=== PATIENT | female | born 1955 | race Caucasian/White ===

== ENCOUNTER → 2016-08-03 | Outpatient (CLI) | payer OTHER ==
--- NOTE | 2016-08-03 15:15 | DX ---
DEXA Bone Mineral Densitometry Clinical Indications: Screening for osteoporosis, postmenopausal, HRT x2 years Comparison: September 10, 2014 Technique: Bone Mineral Densitometry (BMD) by Dual Energy X-Ray Absorptiometry (DEXA) was performed utilizing the [employer] scanner. The lumbar spine was evaluated in the AP projection. The bilat eral hips and forearm were evaluated in the AP projection. Vertebral fracture assessment was also pe rformed. AP Lumbar Spine: The L1, L2, L3 and L4 vertebral bodies were evaluated. BMD: 1.318 gm/cm2 T-score: 1.0 SD Z-score: 2.7 SD Significantly increased by 4.7%. AP Left Hip: Neck BMD: 0.923 gm/cm2 T-score: -0.8 SD Z-score: 0.7 SD No significant change in total BMD AP Right Hip: Neck BMD: 0.956 gm/cm2 T-score: -0.6 SD Z-score: 1.0 SD No significant change in total BMD AP Left Forearm, 07/21: BMD: 0.676 gm/cm2 T-score: -2.3 SD Z-score: -1.2 SD No significant change. Vertebral Fracture Assessment: No significant fracture deformity. No prevertebral aortic calcificati on, significant marginal bone spurring, facet arthrosis, or intrinsic vertebral body sclerosis that would effect the accuracy of the lumbar spine BMD measurement. Conclusion: Considering the lowest measured site, the patient has low bone density. Since the forear m is the lowest measured site, it would be worthwhile to exclude hyperparathyroidism. The ten year FRAX risk for any major osteoporotic fracture , which excludes the risk for a wrist frac ture, is 6.4% and for a hip fracture is 0.4%. To prevent osteoporosis and to promote the patient's bone density, the following recommendations shou ld be considered: 1. Pursue a regular regimen of weightbearing and muscle strengthening exercises in order to reduce t he risk of falls and fractures (as tolerated by the patient's general medical condition). 2. Ensure that daily dietary calcium uptake is maximized. 3. Consider checking the serum vitamin D level. Ensure that intake of vitamin D is 600 IU per day (fo r all ages through 70) 4. Consider follow-up DEXA scan in two years to assess the rate of bone loss in this patient.
== END ==
LOC: BRMIMAGING 13:54
PROVIDERS: ATTEND Internal Medicine
DX: Z13.820 Encounter for screening for osteoporosis (principal); M85.80 Other specified disorders of bone density and structure, unspecified site

== ENCOUNTER 2016-12-06 09:58 | Emergency (ER) | payer OTHER ==
[2016-12-06 10:07] VITALS: RESP 16
--- NOTE | 2016-12-06 10:16 | CPEKG ---
Heart Rate: 72 RR Interval: 833 P-R Interval: 156 QRSD Interval: 92 QT Interval: 420 QTC Interval: 460 P Neffs: 82 QRS Neffs: 84 T Wave Neffs: 67 EKG Severity - BORDERLINE ECG - EKG Impression: SINUS RHYTHM EKG Impression: PROBABLE LEFT ATRIAL ABNORMALITY EKG Impression: SMALL INFERIOR Q EKG Impression: BORDERLINE RIGHT AXIS DEVIATION EKG Impression: BORDERLINE T ABNORMALITIES, ANT-LAT LEADS EKG Impression: COMPARED WITH 16 JUN 2015, T ABNL NOW SEEN Electronically Signed By: Jade Caldwell 11-Dec-2016 13:59:47
--- NOTE | 2016-12-06 10:27 | EDPHY ---
HPI/HX/ROS/PE/MDM Narrative: CHIEF COMPLAINT: Palpitations, elevated heart rate HPI: The patient is a 61 y/o female arriving with her complaining of recurrent episodes of rapid heart rate and palpitations for the last several weeks and worsening yesterday during a biathlon. She has noticed palpitations and sensation of heart racing without pain at rest, during exercise, and symptoms have even woke her from sleep. When present, she describes symptoms as "strong enough that I'm aware of my heart." Yesterday during a biathlon her heart rate monitor showed her heart rate at 242 and reports it was sustained for 7 minutes. She was able to keep running during this time and denies any pain , though she felt like she was breathing heavier. She says her heart rate then dropped to 160 for the remainder rest of event, which is normal for her during intense exercise. She has a history of bradycardia, but otherwise denies significant medical history. REVIEW OF SYSTEMS: Aside from elements discussed in the HPI, a comprehensive 10-point review of systems was reviewed and is negative. PMH: Bradycardia, Postmenopausal - on hormone-replacement therapy SOCIAL HISTORY: at bedside. Competes in triathlons. Lives in [place] PCP: Dr. Ch PHYSICAL EXAM: General:Patient is alert, in no acute distress. ENT:Eyes are normal to inspection. ENT inspection normal. Neck: Normal inspection. Full range of motion. Respiratory:No respiratory distress. Breath sounds normal bilaterally. Cardiovascular: Regular rate and rhythm. Strong peripheral pulses. Normal cap refill. Abdomen:The abdomen is nontender to palpation. There are no peritoneal signs. Back: Normal to inspection. No tenderness to palpation. Skin: Normal color. No rash. Warm and dry. Extremities: Normal appearance. Full range of motion. Neuro: Oriented x3. Normal motor function. Normal sensory function. ED Course: IV established. Labs drawn including CBC, CHEM. Patient placed on band lining bander. The 12 lead EKG was interpreted by myself. See hard copy and/or "tracemaster" electronic copy for interpretation. MDM: This patient presents with concern for rapid heart rate yesterday. Given that her reported heart rate was 240bpm but she was able to continue her triathalon, I somewhat doubt that this was an accurate reading. The patient is currently asymptomatic and has a normal heart rate and normal ECG. We performed basic screening labs and I see no indication of anemia or serious electrolyte abnormality. There is no chest pain to suggest ACS. I have referred patient to electrophysiology. She is comfortable with this plan. We discussed strict return precautions. - Data Points Laboratory Results: Laboratory Results 12/06/16 10:17 12/06/16 12/06/16 10:17 10:17 WBC 5.90 10^3/uL 10^3/uL (3.80-9.50) RBC 4.98 10^6/uL 10^6/uL (4.18-5.33) Hgb 15.1 g/dL g/dL (12.6-16.3) Hct 46.0 % % (38.0-47.0) MCV 92.4 fL fL (81.5-99.8) MCH 30.3 pg pg (27.9-34.1) MCHC 32.8 g/dL g/dL (32.4-36.7) RDW 13.9 % % (11.5-15.2) Plt Count 272 10^3/uL 10^3/uL (150-400) MPV 9.2 fL fL (8.7-11.7) Neut % (Auto) 50.1 % % (39.3-74.2) Lymph % (Auto) 35.3 % % (15.0-45.0) [place] % (Auto) 11.2 % % (4.5-13.0) Eos % (Auto) 2.5 % % (0.6-7.6) Baso % (Auto) 0.7 % % (0.3-1.7) Nucleat RBC Rel Count 0.0 % % (0.0-0.2) Absolute Neuts (auto) 2.96 10^3/uL 10^3/uL (1.70-6.50) Absolute Lymphs (auto) 2.08 10^3/uL 10^3/uL (1.00-3.00) Absolute Monos (auto) 0.66 10^3/uL 10^3/uL (0.30-0.80) Absolute Eos (auto) 0.15 10^3/uL 10^3/uL (0.03-0.40) Absolute Basos (auto) 0.04 10^3/uL 10^3/uL (0.02-0.10) Absolute Nucleated RBC 0.00 10^3/uL 10^3/uL (0-0.01) Immature Gran % 0.2 % % (0.0-1.1) Immature Gran # 0.01 10^3/uL 10^3/uL (0.00-0.10) Sodium Pending Potassium Pending Chloride Pending Carbon Dioxide Pending Anion Gap Pending BUN Pending Creatinine Pending Estimated GFR Pending Glucose Pending Calcium Pending TSH Pending General Time Seen by Provider: 12/06/16 10:08 Initial Vital Signs: Initial Vital Signs Temperature (C) 36.5 C 12/06/16 10:03 Heart Rate 82 12/06/16 10:03 Respiratory Rate 16 12/06/16 10:03 Blood Pressure 119/59 L 12/06/16 10:03 O2 Sat (%) 98 12/06/16 10:03 O2 Delivery Mode Room Air Allergies/Adverse Reactions: Penicillins Allergy (Intermediate, Verified 03/13/12 13:43) Hives Sulfa (Sulfonamide Antibiotics) Allergy (Intermediate, Verified 03/13/12 13:43) Hives Home Medications: Medication Instructions Recorded Multivitamins [Multivitamin (OTC)] 1 each PO DAILY 03/13/12 [place]-3 Fatty Acids [Fish Oil 1000 1,000 mg PO DAILY 03/13/12 mg (OTC)] Hrt 06/16/15 Departure - Departure Disposition: Home, Routine, Self-Care Clinical Impression: Palpitations Condition: Good Instructions: Palpitations (ED) Additional Instructions: Follow up with Dr. Keating or Dr. Quiroz this week. You will likely need a Holter monitor to evaluate your heart rhythm. Return to the ED for severe pain, shortness of breath, fever, or other worsening of condition. Referrals: NONE *PRIMARY CARE P,. [Primary Care Provider] - As per Instructions Jorje Keating MD [Medical Doctor] - As per Instructions Adriano Quiroz MD [Medical Doctor] - As per Instructions Report Scribed for: Mark Barnes Report Scribed by: Sarita Robles Date of Report: 12/06/16 Time of Report: 10:27 Physician Review and Approval Statement: Portions of this note were transcribed by an ED scribe. I personally performed the history, physical exam, and medical decision making; and confirm the accuracy of the information in the transcribed note.
[2016-12-06 10:35] LABS: % IMMATURE GRANULYOCYTES 0.2 % (0.0-1.1); ABSOLUTE IMMATURE GRANULOCYTES 0.01 10^3/uL (0.00-0.10); ADD DIFF? NO; ADD MORPH? NO; ADD SCAN? NO; ATYPICAL LYMPHOCYTE FLAG 10 (0-99); FRAGMENT RBC FLAG 0 (0-99); HEMOGLOBIN 15.1 g/dL (12.6-16.3); LEFT SHIFT FLG 0 (0-99); LIPEMIA HEMOLYSIS FLAG 80 (0-99); MEAN CELL HEMOGLOBIN 30.3 pg (27.9-34.1); MEAN CELL HEMOGLOBIN CONCENTR. 32.8 g/dL (32.4-36.7); MEAN CELL VOLUME 92.4 fL (81.5-99.8); MEAN PLATELET VOLUME 9.2 fL (8.7-11.7); PLATELET CLUMPS FLAG 0 (0-99); PLATELET COUNT 272 10^3/uL (150-400); RED BLOOD CELL COUNT 4.98 10^6/uL (4.18-5.33); RED CELL DISTRIBUTION WIDTH 13.9 % (11.5-15.2)
[2016-12-06 10:43] LABS: ANION GAP 10 mEq/L (8-16); CALCIUM 9.8 mg/dL (8.5-10.4); CARBON DIOXIDE 24 mEq/l (22-31); CHLORIDE 107 mEq/L (97-110); CREATININE 0.8 mg/dL (0.6-1.0); GLOMERULAR FILTRATION RATE > 60; GLUCOSE 76 mg/dL (70-100); POTASSIUM 4.3 mEq/L (3.5-5.2); SODIUM 141 mEq/L (134-144)
[2016-12-06 12:02] VITALS: BP 112/63; PULSE 58; O2SAT 95
[2016-12-06 12:16] VITALS: TEMP 97.9
== END 2016-12-06 12:16 | disposition home or self-care (01) ==
DX: R00.2 Palpitations (principal)